=== PATIENT | male | born 2000 | race Caucasian/White ===

== ENCOUNTER 2018-12-03 19:30 | Emergency (ER) | payer BC ==
[~2018-12-03] VITALS: Ht 180.3 cm; Wt 74.8 kg
--- NOTE | 2018-12-03 19:41 | NUR ---
ED Nurse Note: Pt walked in c/o allergic reaction, nausea, and numbness in mouth, pt reports he ate peanut today and he is allergic to peanuts. no resp distress noted at this time, vss, airway intact, no visible swelling noted, no sx hives nor rash noted. will cont monitor.
[2018-12-03] MEDS ORDERED: Solu-MEDROL 125mg Inj IM ONE (20:00)
[2018-12-03] MEDS ORDERED: DiphenhydrAMINE 50mg/ml Inj IM ONE (20:00)
[2018-12-03 20:26] VITALS: BP 128/76
--- NOTE | 2018-12-03 20:30 | NUR ---
ED Nurse Note: pt reports nausea, er provider notified.
--- NOTE | 2018-12-03 20:38 | Emergency Room Report ---
History of Present Illness General Chief Complaint: Allergic Reaction Source: Patient Present Illness HPI 18-year-old male presents to the emergency department complaining of progressive allergic reaction. Patient reports that approximately 30 minutes prior to arrival he ate a dessert which he believes has peanuts inside of it as he began having a familiar reaction which usually results from peanut ingestion. Patient reports numbness tingling and the throat and on his tongue. Patient states he took 25 mg Benadryl promptly. Patient reports history of anaphylaxis as well as need for intubation at the age of 86 years old. Patient reports last significant anaphylactic reaction was when he was 9. He denies difficulty breathing or wheezing. He is reporting increased salivation. Denies rash or urticaria. Pt. denies pain. Denies vomiting reports some nausea. Allergies: Coded Allergies: PENICILLINS (Verified Allergy, Unknown, 12/03/18) Uncoded Allergies: PEANUTS (Allergy, Unknown, 12/03/18) Patient History Past Medical History: see triage record Past Surgical History: none Pertinent Family History: none Reviewed Nursing Documentation: PMH: Agreed; PSxH: Agreed Nursing Documentation-PMH Past Medical History: No Stated History Review of Systems All Other Systems: negative except mentioned in HPI Physical Exam Vital Signs Date Time Temp Pulse Resp B/P (MAP) Pulse Ox O2 Delivery O2 Flow Rate FiO2 12/03/18 19:37 98.2 64 18 144/86 (105) 99 Room Air Sp02 EP Interpretation: reviewed, normal General Appearance: no apparent distress - slightly anxious, alert, GCS 15, non -toxic Head: normocephalic, atraumatic Eyes: bilateral eye normal inspection, bilateral eye PERRL ENT: hearing grossly normal, normal pharynx, no angioedema, normal voice, other - no stridor, no pharyngeal swelling. Neck: full range of motion Respiratory: chest non-tender, lungs clear, normal breath sounds, no respiratory distress, no retraction, no accessory muscle use, no wheezing, speaking full sentences Cardiovascular #1: regular rate, rhythm, no edema Musculoskeletal: gait/station normal, normal range of motion Neurologic: alert, oriented x3, responsive, motor strength/tone normal, sensory intact, normal gait, speech normal, grossly normal Psychiatric: judgement/insight normal Skin: no rash - mild sunburn. pt. reports not itchy Lymphatic: no adenopathy Medical Decision Making PA Attestation Dr. Bustillos Is my supervising Physician whom patient management has been discussed with. Diagnostic Impression: Primary Impression: Allergic reaction Qualified Codes: T78.40XA - Allergy, unspecified, initial encounter ER Course 18-year-old male presents to the emergency department complaining of progressive allergic reaction. Patient reports that approximately 30 minutes prior to arrival he ate a dessert which he believes has peanuts inside of it as he began having a familiar reaction which usually results from peanut ingestion. Patient reports numbness tingling and the throat and on his tongue. Patient states he took 25 mg Benadryl promptly. Patient reports history of anaphylaxis as well as need for intubation at the age of 86 years old. Patient reports last significant anaphylactic reaction was when he was 9. He denies difficulty breathing or wheezing. He is reporting increased salivation. Denies rash or urticaria. Pt. denies pain. Denies vomiting reports some nausea. Ddx considered but are not limited to cellulitis, allergic reaction, angio edema , abscess Vital signs: are WNL, pt. is afebrile H&PE are most consistent with allergic reaction ORDERS: none required at this time, the diagnosis is clinical ED INTERVENTIONS: - IM [id number] -IM Benadryl Patient was kept for observation did he reports he is experiencing improvement of his symptoms. Patient states he feels comfortable going home now. Patient denies having EpiPen so he will be discharged with a prescription for 2. Strict ED return precautions were given. DISCHARGE: At this time pt. is stable for d/c to home. Will provide printed patient care instructions, and any necessary prescriptions. Care plan and follow up instructions have been discussed with the patient prior to discharge. Last Vital Signs Date Time Temp Pulse Resp B/P (MAP) Pulse Ox O2 Delivery O2 Flow Rate FiO2 12/03/18 20:26 98.2 86 18 128/76 99 Room Air Status: improved - subjective improvement of symptoms by pt. Disposition: HOME, SELF-CARE Condition: Stable Scripts Epinephrine (Epipen 2-Danyel) 0.3 Mg/0.3 Ml Auto.injct 0.3 MG IM PRN, #1 EA Prov: Lili Angulo 12/03/18 Diphenhydramine Hcl (BENADRYL ALLERGY) 25 Mg Tablet 25-50 MG PO Q6HR, #30 TAB Prov: Lili Angulo 12/03/18 Patient Instructions: Allergies Additional Instructions: - Take medications as directed. -Do not drink alcohol, drive, or operate heavy machinery while taking Benadryl as this may cause drowsiness. -Return sooner to ED if new symptoms occur, or current symptoms become worse. Follow up with a Primary Care Provider in 3-5 days, even if your symptoms have resolved. - Please note that this Emergency Department Report was dictated using [employer] customer experience specialist technology software, occasionally this can lead to erroneous entry secondary to interpretation by the dictation equipment. Lili Angulo Dec 03, 2018 20:38
[2018-12-03] MEDS ORDERED: BENADRYL ALLERG25 M1 PO (20:59)
[2018-12-03] MEDS ORDERED: EPIPEN 2-P0.3 MG/0.3 IM (20:59)
[2018-12-03 21:02] VITALS: BP 128/76
--- NOTE | 2018-12-03 21:02 | NUR ---
ED Nurse Note: pt cleared to be d/c per ERMD, pt discharge and aftercare instruction provided w/ prescription, pt education done via discussion and hand out, pt advised to follow up with pcp or return to ed if changes in condition, vss, ambulatory w/ steady gait, accompanied by friend left w/ all belongings.
== END 2018-12-03 21:02 | disposition home or self-care (01) ==
LOC: EMR 20:58
DX: T78.1XXA Other adverse food reactions, not elsewhere classified, initial encounter (principal); R20.0 Anesthesia of skin; Z91.010 Allergy to peanuts; Z88.0 Allergy status to penicillin; X58.XXXA Exposure to other specified factors, initial encounter
CPT/HCPCS: 96372; 99283; J1200; J2930